=== PATIENT | male | born 1955 | race Caucasian/White ===

== ENCOUNTER 2017-01-24 10:38 | Inpatient (IN) | payer BC, OTHER ==
[2016-12-26 09:59] VITALS: BMI 31.0
--- NOTE | 2016-12-26 10:36 | PAT Medication Instructions ---
Service Date Dec 26, 2016. Current Home Medication List Aspirin (Aspirin Ec), 81 MG PO QAM Betamethasone Dip Aug 0.05% (Diprolene 0.05%), 1 DOSE TOP PRN Cholecalciferol (Vitamin D), Unknown Dose DAILY Citalopram Hydrobromide (Citalopram Hydrobromide), 1 TAB PO QAM Clonazepam (Klonopin), 1 MG PO HS Diclofenac (Voltaren), Unknown Dose PO BID Gabapentin (Neurontin), 2 TAB PO BID Gabapentin (Neurontin), 600 MG PO QAM Lisinopril (Zestril), 5 MG PO QAM Medication Instructions For Your Scheduled Surgery - Hold the following medications 2 weeks prior to surgery per surgeon instructions: Diclofenac (Voltaren), Unknown Dose PO BID - Hold the following medications 24 hours prior to surgery: Betamethasone Dip Aug 0.05% (Diprolene 0.05%), 1 DOSE TOP PRN - Hold the following medications the morning of surgery: Lisinopril (Zestril), 5 MG PO QAM Cholecalciferol (Vitamin D), Unknown Dose DAILY - Take the following medications the morning of surgery with a sip of water: Gabapentin (Neurontin) Citalopram Hydrobromide (Citalopram Hydrobromide), 1 TAB PO QAM Tylenol (if needed) Aspirin (Aspirin Ec), 81 MG PO QAM - Take the following medications as scheduled the night before surgery: Gabapentin (Neurontin) Clonazepam (Klonopin), 1 MG PO HS Tylenol (if needed) If you have any questions please call us at [phone] or [phone] ( Tish) or [phone]
--- NOTE | 2016-12-26 11:07 | DIAGNOSTIC IMAGING REPORT ---
CHEST 2 VIEWS ROUTINE CLINICAL HISTORY: Preoperative chest COMPARISON STUDY: A second 2016 FINDINGS: The cardiac images all contours remain stable. There is mild elevation/eventration of the right hemidiaphragm. There is a 1 cm opacity at the right lung base. This could represent a nipple shadow. This could be confirmed with a follow-up study with nipple markers. There is no failure. There is no focal pulmonary consolidation. There are no pleural effusions.[ IMPRESSION: 1. 1 cm opacity at the right lung base, possibly representing a nipple shadow 2. No evidence of failure. No evidence of focal pulmonary consolidation. Electronically signed by: Armando Pulido M.D. 12/26/2016 11:05 AM Dictated Date/Time: 12/26/2016 11:03 AM
[2016-12-26 11:23] LABS: BASO % 0.7 %; BASO ABS # 0.03 K/uL (0-0.2); COMPLETE YES; EOS % 3.3 %; HEMATOCRIT 38.6 % (42-52); IG% 0.4 %; LYMPH % 44.4 %; LYMPH ABS # 2.03 K/uL (1.2-3.4); MEAN CELL VOLUME 88.1 fL (80-100); MEAN CORPUSCULAR HEMOGLOBIN 29.7 pg (25-34); MEAN CORPUSCULAR HGB CONC 33.7 g/dl (32-36); MEAN PLATELET VOLUME 9.6 fL (7.4-10.4); MONO % 7.7 %; NEUT % 43.5 %; PLATELET COUNT 176 K/uL (130-400); RED BLOOD COUNT 4.38 M/uL (4.7-6.1); WHITE BLOOD COUNT 4.57 K/uL (4.8-10.8)
[2016-12-26 11:44] LABS: PARTIAL THROMBOPLASTIN RATIO 1.1
[2016-12-26 11:51] LABS: BLOOD UREA NITROGEN 17 mg/dl (7-18); BUN/CREATININE RATIO 24.5 (10-20); CALCIUM 9.3 mg/dl (8.5-10.1); CARBON DIOXIDE 32 mmol/L (21-32); CHLORIDE 107 mmol/L (98-107); CREATININE 0.71 mg/dl (0.60-1.40); GLUCOSE 96 mg/dl (70-99); POTASSIUM 4.4 mmol/L (3.5-5.1); SODIUM 141 mmol/L (136-145)
[2016-12-26 11:54] LABS: C-REACTIVE PROTEIN < 0.29 mg/dl (0-0.29)
--- NOTE | 2016-12-27 10:03 | DIAGNOSTIC IMAGING REPORT ---
TWO VIEW CHEST CLINICAL HISTORY: Follow-up abnormal chest x-ray. Repeat examination with nipple markers. FINDINGS: PA and lateral chest radiographs are compared to study dated 12/26/2016. The heart is enlarged. The pulmonary vasculature is noncongested. Mild elevation right hemidiaphragm and chronic interstitial thickening are similar to previous. No airspace consolidation or pleural effusion is identified. Bilateral nipple markers are in place. The nodular density seen yesterday is consistent with a nipple shadow. There is no pneumothorax. The skeletal structures are osteopenic. Degenerative change and scoliosis are noted in the thoracic spine. IMPRESSION: 1. Cardiomegaly with no active disease in the chest. 2. The nodular density at the right lung base seen yesterday corresponds to a nipple shadow. Electronically signed by: Martínez Pires M.D. 12/27/2016 10:01 AM Dictated Date/Time: 12/27/2016 9:59 AM
--- NOTE | 2017-01-21 11:23 | HISTORY & PHYSICAL EXAMINATION ---
DATE OF ADMISSION: 01/24/2017 CHIEF COMPLAINT: Right knee pain. HISTORY OF PRESENT ILLNESS: The patient is a 61-year-old gentleman from [place] who is now about 11 months out from a left knee replacement. He has done well from this. He has become more and more bothered by right knee pain and discomfort. He has been through extensive conservative treatment. The pain is mostly on the medial side of his knee. It is increased with weightbearing. He has difficulty with any prolonged weightbearing. He is very happy with his left knee and would like to have his right knee replaced. PAST MEDICAL HISTORY: Significant for 1. Unspecified neuropathy. 3. Sleep apnea. 4. Anxiety/depression. PAST SURGICAL HISTORY: 1. Herniorrhaphy. 2. Left knee arthroscopy. 3. Left knee replacement done 02/09/2016. ALLERGIES: None. CURRENT MEDICINES: 1. Gabapentin 1200 mg 3 times a day for neuropathy. 2. Citalopram once a day. 3. Clonazepam twice a day. 4. Lisinopril once a day. 5. Aspirin once a day. 6. Diclofenac twice a day. SOCIAL HISTORY: A 61-year-old male. 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 He works at [employer]. He is from [place]. He does not smoke. FAMILY HISTORY: Noncontributory. REVIEW OF SYSTEMS: Is significant for unspecified neuropathy. Denies any diabetes or chest pain or shortness of breath. No history of DVT or PE. PHYSICAL EXAMINATION: GENERAL: Reveals a healthy, pleasant, middle-aged male. He looks to be in good health. HEENT: Benign. NECK: Supple. No lymphadenopathy. LUNGS: Clear to auscultation. HEART: Has a regular rate and rhythm. ABDOMEN: Soft, nontender, nondistended. EXTREMITIES: Grossly neurovascularly intact except as follows: Examination of the right knee reveals the patient walks with a varus alignment to his knee. He is tender over the medial joint line. Small knee effusion. Range of motion 5-120. No instability. X-RAYS: X-rays of the right knee reviewed. It shows advanced right knee DJD. He has got complete loss of his medial joint space. He has got some tricompartmental changes. He has got posterior osteophytes. ASSESSMENT: A 61-year-old gentleman 11 months out from left knee replacement, doing well with advanced right knee degenerative joint disease. He has failed conservative treatment, would like to have his right knee replaced. PLAN: We are going to take him to the operating room and do a right total knee replacement. The risks and benefits of this procedure were explained to the patient including but not limited to DVT, PE, , infection, neurological injury, vascular injury, bleeding problem, pain, limited range of motion, stiffness, failure to relieve symptoms, incomplete relief of symptoms, need for further surgery in the future, fracture, leg length inequality, nerve palsy, etc. The patient understands and desires advised. Informed consent was obtained. We did talk to him about holding his lisinopril the morning of surgery, the diclofenac 2 weeks preop. He is planning to be discharged home using [facility]. His can assist in his care.
[2017-01-24] VITALS (8 sets, daily range): BP systolic 106–140; BP diastolic 59–80; PULSE 62–73; TEMP 36.3–36.5; O2SAT 96–99; Ht 180.3 cm; Wt 102.4 kg
[~2017-01-24] VITALS: Ht 180.3 cm; Wt 102.4 kg
[~2017-01-24 10:38] MED LIST: ACETAMINOPHEN 500 MG TAB PO SCH; ASPI81TA28 PO; AUG0.05O4 TOP; BUPIVACAINE 0.25% 30 ML VIAL ONE; BUPIVACAINE 0.5 % 5 MG/1 ML PF 10ML VIAL ONE; BUPIVACAINE LIPOSOME 266 MG, BUPIVACAINE/EPINEPHRINE INJ 50 ML, SODIUM CHLORIDE 0.9% PF... INFIL SCH; CEFAZOLIN 2000 MG/60 ML D5W 60 ML IV SCH; CHOL100010; CITA10TA4 PO; CLON1TAB3 PO; DICL50TA3 PO; FAMOTIDINE 20 MG TAB PO SCH; GABA600T PO; GABAPENTIN 300 MG CAP PO SCH; LACTATED RINGER'S 1000ML IV SCH; LACTATED RINGER'S 500 ML IV SCH; LISI-729 PO; METOCLOPRAMIDE HCL 10 MG TAB PO SCH; NRN/600 PO; SCOPOLAMINE 1.5 MG TDSY TD SCH; TRANEXAMIC ACID INJ 1,000 MG in SODIUM CHLORIDE 0.9% 100ML 100 ML IV SCH
--- NOTE | 2017-01-24 11:07 | History & Physical Bridge Note ---
H&P Re-Evaluation Bridge Note: I have examined the patient, reviewed the History & Physical and in the interval since the performance of the History & Physical I have noted the following changes of clinical significance: No changes noted
[2017-01-24] MEDS ORDERED: PROPOFOL IV EMULSION 10 MG/ML 20 ML VIAL IV ONE (11:12)
[2017-01-24] MEDS ORDERED: ONDANSETRON INJ 2 MG/ML 2 ML VIAL ONE (11:12)
[2017-01-24] MEDS ORDERED: MIDAZOLAM HCL 1 MG/ML 2ML VIAL ONE (11:12)
[2017-01-24] MEDS ORDERED: FENTANYL CITRATE INJ 50 MCG/1 ML 2 ML VIAL ONE (11:12)
[2017-01-24] MEDS ORDERED: ETOMIDATE 2 MG/ML 20 ML VIAL IV ONE (11:12)
[2017-01-24] MEDS ORDERED: BUPIVACAINE LIPOSOME 1/3% 266 MG/20 ML VIAL INFIL ONE (12:43)
[2017-01-24] MEDS ORDERED: BUPIVACAINE/EPINEPHRINE 0.25% 1:200,000 30 ML VIAL ONE (12:43)
[2017-01-24] MEDS ORDERED: SODIUM CHLORIDE 0.9% PF 50 ML VIAL ONE (12:43)
[2017-01-24] MEDS ORDERED: BACITRACIN 50000 UNIT VIAL ONE (12:43)
[2017-01-24] MEDS ORDERED: EpHEDrine SULFATE INJ 50 MG/ML AMP ONE (14:09)
[2017-01-24] MEDS ORDERED: WATER, STERILE FOR INJ 10 ML VIAL ONE (14:09)
[2017-01-24] MEDS ORDERED: ATROPINE SULFATE 0.1 MG/ML 5ML SYR IV PRN (14:30)
[2017-01-24] MEDS ORDERED: ONDANSETRON INJ 2 MG/ML 2 ML VIAL IV PRN ×2 (14:30→14:45)
[2017-01-24] MEDS ORDERED: FLUMAZENIL 0.1 MG/1 ML 10 ML VIAL IV PRN (14:30)
[2017-01-24] MEDS ORDERED: PROMETHAZINE HCL INJ 12.5 MG in SODIUM CHLORIDE 0.9% 50ML 50 ML IV PRN (14:30)
[2017-01-24] MEDS ORDERED: NALOXONE HCL 0.4 MG/1 ML VIAL/CARP IV PRN (14:30)
[2017-01-24] MEDS ORDERED: EpHEDrine SULFATE INJ 50 MG/ML AMP IV PRN (14:30)
--- NOTE | 2017-01-24 14:43 | [facility] Post Operative Brief Note ---
Immediate Operative Summary Operative Date January 24, 2017. Pre-Operative Diagnosis Right Knee Advanced Degenerative Joint Disease Post-Operative Diagnosis Right Knee Advanced Degenerative Joint Disease Procedure(s) Performed Right Total Knee Arthroplasty Surgeon Dr. Forrest Cd Manufacturing Supervisor Surgeon(s) TOMAS Joseph Estimated Blood Loss 50 ml Findings Right Knee DJD Fluids (cc crystalloids) 1300 cc Specimens A. Right Knee Bone and Tissue Drains None Anesthesia Spinal Complication(s) None Disposition Recovery Room / PACU
[2017-01-24] MEDS ORDERED: BISACODYL 10 MG SUPP PR PRN (14:45)
[2017-01-24] MEDS ORDERED: TAMSULOSIN HCL 0.4 MG CAP PO PRN (14:45)
[2017-01-24] MEDS ORDERED: BETAMETHASONE DIP AUG (DIPROLENE) 0.05% OINT 15 GM TUBE EXT PRN (14:45)
[2017-01-24] MEDS ORDERED: MAGNESIUM HYDROXIDE SUSP 30 ML UDC PO PRN (14:45)
[2017-01-24] MEDS ORDERED: SILVER SULFADIAZINE 1% CR 50 GM JAR EXT PRN (14:45)
[2017-01-24] MEDS ORDERED: METOCLOPRAMIDE HCL INJ 5 MG/ML 2 ML VIAL IV PRN (14:45)
[2017-01-24] MEDS ORDERED: ALUMINUM/MAGNESIUM/SIMETH (MAALOX MAX) 30 ML UDC PO PRN (14:45)
[2017-01-24] MEDS ORDERED: HYDROmorphone INJ 1 MG/ML SYR IV PRN (14:45)
[2017-01-24] MEDS ORDERED: ZOLPIDEM TARTRATE 5 MG TAB PO PRN (14:45)
--- NOTE | 2017-01-24 15:29 | DIAGNOSTIC IMAGING REPORT ---
RIGHT KNEE 1 OR 2 VIEWS ROUTINE CLINICAL HISTORY: AP/LATERAL IN PACU RIGHT KNEE Right COMPARISON: None. DISCUSSION: Total joint replacement. Good contact between prosthetic and underlying bone. Expected soft tissue postoperative change IMPRESSION: Anatomic alignment status post total right knee replacement Electronically signed by: Darryl Lawson M.D. 01/24/2017 3:28 PM Dictated Date/Time: 01/24/2017 3:28 PM
--- NOTE | 2017-01-24 16:17 | Anesthesiology Progress Note ---
Anesthesia Post Op Note Date & Time January 24, 2017 at 16:17 Vital Signs Pain Intensity: 0 Vital Signs Past 12 Hours Date Time Temp Pulse Resp B/P Pulse Ox O2 Delivery O2 Flow Rate FiO2 01/24/17 15:57 69 15 123/66 98 01/24/17 15:57 36.9 69 15 01/24/17 15:52 69 25 97 01/24/17 15:52 68 25 01/24/17 15:47 67 20 01/24/17 15:47 68 20 95 01/24/17 15:46 118/84 01/24/17 15:42 61 12 96 01/24/17 15:42 61 12 01/24/17 15:41 128/74 01/24/17 15:37 63 13 01/24/17 15:37 62 13 96 01/24/17 15:36 127/75 01/24/17 15:32 63 12 01/24/17 15:32 63 12 96 01/24/17 15:31 114/54 01/24/17 15:27 66 15 01/24/17 15:27 65 15 96 01/24/17 15:26 123/78 01/24/17 15:22 66 14 124/72 96 01/24/17 15:22 63 14 01/24/17 15:17 67 10 97 01/24/17 15:17 66 10 01/24/17 15:16 70 11 01/24/17 15:16 71 11 128/60 97 01/24/17 15:11 69 15 139/70 97 01/24/17 15:11 67 15 01/24/17 15:06 67 12 01/24/17 15:06 68 12 126/76 97 01/24/17 15:01 68 20 135/78 97 01/24/17 15:01 68 20 01/24/17 14:56 63 16 01/24/17 14:56 67 16 129/78 98 01/24/17 14:55 140/79 01/24/17 14:46 36.2 65 16 141/70 100 Nasal Cannula 3 01/24/17 11:17 97 Room Air 01/24/17 11:11 36.3 67 14 140/73 Notes Mental Status: alert / awake / arousable, participated in evaluation Pt Amnestic to Procedure: Yes Nausea / Vomiting: adequately controlled Pain: adequately controlled Airway Patency, RR, SpO2: stable & adequate BP & HR: stable & adequate Hydration State: stable & adequate Neuraxial Anesthesia: was administered, sensory block is resolving Anesthetic Complications: no major complications apparent
[2017-01-24] MEDS: CHECK SCOPOLAMINE PATCH PLACEMENT SCH ×2 (16:55→23:49)
[2017-01-24] MEDS: D5W AND 1/2NSS + 20MEQ KCL 1,000 ML IV SCH ×2 (17:58→23:48)
[2017-01-24] MEDS: KETOROLAC TROMETHAMINE 30 MG/ML VIAL IV. SCH ×2 (17:59→23:48)
[2017-01-24] MEDS: FERROUS GLUCONATE 324 MG TAB PO SCH (17:59)
[2017-01-24] MEDS: DOCUSATE SODIUM 100 MG CAP PO SCH (20:27)
[2017-01-24] MEDS: SENNA 8.6 MG TAB PO SCH (20:27)
[2017-01-24] MEDS: CLONAZEPAM 1 MG TAB PO SCH (20:28)
[2017-01-24] MEDS: TAPENTADOL ER 50 MG TABCR PO SCH (20:28)
[2017-01-24] MEDS: ASPIRIN 325 MG ECTAB PO SCH (20:28)
[2017-01-24] MEDS: GABAPENTIN 600 MG TAB PO SCH (20:40)
[2017-01-24] MEDS ORDERED: TRANEXAMIC ACID INJ 1,000 MG in SODIUM CHLORIDE 0.9% 100ML 100 ML IV SCH (21:00)
[2017-01-24] MEDS: CEFAZOLIN IV 2,000 MG in DEXTROSE 5% 50ML 50 ML IV SCH (22:25)
[2017-01-24] MEDS: ACETAMINOPHEN 500 MG TAB PO SCH (22:25)
[2017-01-25] VITALS (7 sets, daily range): BP systolic 100–124; BP diastolic 60–76; PULSE 60–67; TEMP 36.5–37.1; O2SAT 93–97
[2017-01-25 05:10] LABS: HEMATOCRIT 35.1 % (42-52); MEAN CELL VOLUME 87.1 fL (80-100); MEAN CORPUSCULAR HEMOGLOBIN 28.5 pg (25-34); MEAN CORPUSCULAR HGB CONC 32.8 g/dl (32-36); MEAN PLATELET VOLUME 9.3 fL (7.4-10.4); PLATELET COUNT 189 K/uL (130-400); RED BLOOD COUNT 4.03 M/uL (4.7-6.1); WHITE BLOOD COUNT 8.68 K/uL (4.8-10.8)
--- NOTE | 2017-01-25 05:28 | OPERATIVE REPORT ---
DATE OF OPERATION: 01/24/2017 SURGEON: Otis Forrest MD LABORER [employer]: TOMAS English PREOPERATIVE DIAGNOSIS: Right knee degenerative joint disease. POSTOPERATIVE DIAGNOSIS: Same. PROCEDURE PERFORMED: Left cemented posterior stabilized total knee arthroplasty. COMPLICATIONS: None. ESTIMATED BLOOD LOSS: 50 mL. FLUID REPLACEMENT: 1300 mL crystalloid fluid replacement. TOURNIQUET TIME: 57 minutes at 300 mmHg. ANESTHESIA: Spinal with adductor canal block. DRAINS: None. SPECIMENS: Left knee sent for pathology. OPERATIVE INDICATIONS: The patient is a 61-year-old gentleman who is about 11 months out from a left knee replacement. He has a long history of bilateral knee pain and discomfort. He has left knee replaced just about 11 months ago, has done well from this. He has continued to be bothered by right knee pain. He has failed conservative care. X-rays revealed advanced DJD and he elected to proceed with operative treatment. OPERATIVE FINDINGS: Operative findings revealed advanced right knee DJD. He had extensive grade 4 changes and eburnation of the medial femoral condyle and medial tibial plateau. He had less severe and more spotty grade 4 changes of the lateral compartment and more extensive grade 4 changes of the patellofemoral joint. Moderate size joint effusion. OPERATIVE IMPLANTS: Operative implants consisted of: 1. A Biomet Vanguard size 70 right posterior stabilized femoral component. 2. A Biomet size 71 tibial tray. 3. A 12 mm posterior stabilized polyethylene insert. 4. A 34 x 8.5 all poly patella. OPERATIVE PROCEDURE: The patient taken to the operating room, identified and placed on the operating table in supine position. All contact areas were appropriately padded. IV antibiotics were provided by anesthesia team. A Mahoney catheter was placed in sterile fashion. Right thigh tourniquet was then placed. The right leg was then prepped and draped in the usual sterile fashion. The right leg was elevated and exsanguinated with Esmarch and tourniquet was placed at 300 mmHg. An anterior approach to the right knee was then performed through a longitudinal incision centered over the patella. Sharp dissection was carried out through the subcutaneous tissues down to the level of the extensor mechanism. Medial parapatellar arthrotomy incision was made. Some subperiosteal dissection was carried out medially. The fat pad was resected from beneath the patellar tendon. The lateral patellofemoral ligament was released. The patella was everted and knee was flexed. The osteophytes were taken off the distal femur. The ACL and PCL were then released from the distal femur and the tibia subluxated anteriorly. The external tibial alignment jig was then placed in the anterior face of the tibia and adjusted 16 mm medially. A proximal tibial cut was made to remove about 2-3 mm of bone from the most deficient aspect of the medial tibial plateau. The tibia was then sized to a size 71. Attention was then drawn to the femur. The distal femur was entered with a sharp drill bit. Intramedullary canal was suctioned. A right 6 degree valgus cutting guide was placed. Distal femoral cutting block was pinned in place. Distal femoral cut was made to take an additional 3 mm of bone off the distal femur. The femur was then sized to a size 70. We did downsize this just slightly. The AP cutting block was pinned parallel to the epicondylar axis, which was 3 degrees of external rotation. The anterior cut, anterior chamfer, posterior cut, posterior chamfer cuts were made. Box cutting guide was placed and adjusted slightly lateral and the box cut was made. The knee was flexed. The remnants of the medial and lateral meniscus were excised. The osteophytes were taken off the posterior aspect of the femur. A trial femoral component was placed. The tibial tray was pinned in maximum external rotation and drill and stem punch were used to create defect in proximal tibia for the tibial tray. The knee was then trialed and the 12 mm insert fit most appropriately. Attention was then drawn to the patella. The patella was cleaned of all soft tissues. Patellar thickness measured 25 mm in thickness and was cut down to 15. It was sized to a size 34 patella. Lug holes were drilled for a 34 patella. The lateral osteophyte was removed. Patella button was placed. He was taken through range of motion and patella tracked nicely with no thumbs test. Attention was then drawn toward placement of permanent components. All trial components were removed. A bone plug was placed in the distal femur to limit blood loss. A double batch of Palacos G cement was mixed. A right size 70 posterior stabilized femoral component, a size 71 tibial tray, a 12 mm posterior stabilized polyethylene insert, and a 34 x 8.5 all poly patella were then cemented in place. Knee was brought out into full extension until cement hardened. A final cement check was then performed. The pericapsular tissues were injected with 100 mL of a combination of 20 mL of Exparel, 30 mL of normal saline, 50 mL of 0.25% Marcaine with epinephrine. The tourniquet was then let down for a total tourniquet time of 57 minutes. Hemostasis was assured with use of electrocautery. The extensor mechanism was then closed with a combination of #1 PDS suture and #1 Vicryl suture in a [id number] fashion. Extensor mechanism was checked and found to be intact. Subcutaneous tissues were then closed with 2-0 Dexon suture in a buried interrupted fashion. Skin was closed skin nikhil. Leg was then cleaned and dried and a sterile dressing with Xeroform, 4 x 4, sterile cast padding and Harvinder bandage were applied. The patient then transferred to the recovery room in stable condition. The patient tolerated the procedure well with no complications. All needle and sponge counts were correct at the end of the operation. I attest to the content of the Intraoperative Record and any orders documented therein. Any exceptio ns are noted below.
[2017-01-25 05:29] LABS: BUN/CREATININE RATIO 18.1 (10-20); CREATININE 0.91 mg/dl (0.60-1.40); POTASSIUM 4.1 mmol/L (3.5-5.1)
[2017-01-25] MEDS: D5W AND 1/2NSS + 20MEQ KCL 1,000 ML IV SCH ×2 (05:46→12:21)
[2017-01-25] MEDS: KETOROLAC TROMETHAMINE 30 MG/ML VIAL IV. SCH ×4 (05:46→23:56)
[2017-01-25] MEDS: CEFAZOLIN IV 2,000 MG in DEXTROSE 5% 50ML 50 ML IV SCH (05:46)
[2017-01-25] MEDS: ACETAMINOPHEN 500 MG TAB PO SCH ×3 (05:47→21:30)
[2017-01-25] MEDS: CHECK SCOPOLAMINE PATCH PLACEMENT SCH ×2 (07:25→16:03)
[2017-01-25] MEDS: GABAPENTIN 600 MG TAB PO SCH ×3 (07:27→21:29)
--- NOTE | 2017-01-25 07:44 | Anesthesiology Progress Note ---
Anesthesia Post Op Note Date & Time January 25, 2017 at 07:44 Vital Signs Pain Intensity: 7.0 Vital Signs Past 12 Hours Date Time Temp Pulse Resp B/P Pulse Ox O2 Delivery O2 Flow Rate FiO2 01/25/17 03:15 36.5 61 18 115/65 93 Room Air 01/24/17 23:45 Room Air 01/24/17 22:59 36.5 70 18 126/71 96 Room Air Notes Mental Status: alert / awake / arousable, participated in evaluation Pt Amnestic to Procedure: Yes Nausea / Vomiting: adequately controlled Pain: adequately controlled Airway Patency, RR, SpO2: stable & adequate BP & HR: stable & adequate Hydration State: stable & adequate Anesthetic Complications: no major complications apparent
[2017-01-25] MEDS: DOCUSATE SODIUM 100 MG CAP PO SCH ×2 (08:30→20:34)
[2017-01-25] MEDS: OXYCODONE HCL IR 5 MG TAB (IMMEDIATE RELEASE) PO PRN ×2 (08:30→12:20)
[2017-01-25] MEDS: CITALOPRAM 20 MG TAB PO SCH (08:31)
[2017-01-25] MEDS: LISINOPRIL 5 MG TAB PO SCH (08:31)
[2017-01-25] MEDS: FERROUS GLUCONATE 324 MG TAB PO SCH ×3 (08:31→17:50)
[2017-01-25] MEDS: MULTIVITAMIN TAB PO SCH (08:32)
[2017-01-25] MEDS: PANTOprazole SOD 40 MG TAB PO SCH (08:32)
[2017-01-25] MEDS: ASPIRIN 325 MG ECTAB PO SCH ×2 (08:32→20:34)
[2017-01-25] MEDS: TAPENTADOL ER 50 MG TABCR PO SCH ×2 (08:34→20:34)
--- NOTE | 2017-01-25 18:54 | PROGRESS NOTE ---
DATE: 01/25/2017 SUBJECTIVE: A 61-year-old gentleman postop day 1 from right knee replaced. He has done reasonably well. Painful but managed. No chest pain or shortness of breath. Not feeling dizzy or lightheaded. OBJECTIVE: VITAL SIGNS: Temperature 36.7. Vital signs stable. PHYSICAL EXAMINATION: GENERAL: Reveals a healthy, pleasant, middle-aged male. He was sitting up at his bedside on my visit in this afternoon. LUNGS: Clear to auscultation. HEART: Has a regular rate and rhythm. ABDOMEN: Soft, nontender, nondistended. EXTREMITIES: Grossly neurovascularly intact except as follows: Examination of the right leg reveals the dressing to be clean, dry, and intact. He can do a straight leg raise. He can dorsiflex and plantarflex his foot appropriately. He is neurologically intact. LABORATORY DATA: Hemoglobin 11.5. Hematocrit 35.1. Electrolytes are stable. ASSESSMENT: A 61-year-old gentleman postop day 1 from a right total knee replacement, doing pretty well. Pain is controlled. He is neurologically intact. PLAN: 1. DVT prophylaxis including thigh-high TEDs, SCDs, and aspirin twice a day. 2. PT/OT. Weightbearing as tolerated. Right total knee protocol. 3. Pain control, doing pretty well with current pain regimen. 4. Disposition: Plan to discharge to home with some home health once adequately recovered.
[2017-01-25] MEDS: CLONAZEPAM 1 MG TAB PO SCH (20:33)
[2017-01-25] MEDS: SENNA 8.6 MG TAB PO SCH (20:34)
[2017-01-25] MEDS ORDERED: OXYC-57 PO (21:13)
[2017-01-25] MEDS ORDERED: ASPEC325 PO (21:13)
--- NOTE | 2017-01-25 21:16 | Discharge Instructions ---
Discharge Instructions Date of Service January 25, 2017. Admission Reason for Admission: Right Knee Degenerative Joint Disease;Abnormal Discharge Discharge Diagnosis / Problem: Right Knee Replacement Discharge Goals Goal(s): Decrease discomfort, Improve function, Increase independence, Improve disease control, Therapeutic intervention Activity Recommendations Activity Limitations: per Instructions/Follow-up section Weightbearing Status: Right weightbearing . Instructions / Follow-Up Instructions / Follow-Up ACTIVITY RECOMMENDATIONS: Physical Therapy: * You will go to physical therapy three times each week for four to six weeks after your surgery in order to regain your knee range of motion and to retrain your knee to work properly. * It is just as important to make sure you are getting your knee perfectly straight as it is to regain your knee bend. * Taking a pain pill an hour before therapy can help you have a more productive and comfortable therapy session. Home Exercise: * You were shown a series of exercises (heel props, heel slides, etc.) in the hospital. Do these exercises three to four times each day including the exercises you were shown in physical therapy. Walking: * Get up and walk several times each day. For the first four weeks, try not to stand or walk for more than one hour at a time. If you do stand or walk for more than one hour, you will not hurt anything, but your knee and leg will likely swell. * As you feel comfortable, you may change from the walker or crutches to a cane and then to independent walking. MEDICATIONS: New Medicine: * You will likely be taking one or more of these medications: 1. Percocet - A quick and shorter-acting pain medication. Take one to two tablets every four to six hours to lessen your pain. 2. Aspirin - Thins your blood to lessen the chance of forming a blood clot. * The most common side effects of pain medicine and iron are nausea and constipation. If nausea or constipation is too much of a problem or if you have any questions about your new medicines or doses, call [facility] at . We will try to help you manage these issues. VERY IMPORTANT TO READ AND REVIEW" Pain: * The immediate post-operative period after knee replacement surgery is often quite painful. * You are given a prescription for pain medicine. You should take it, as directed, when you need it, especially before physical therapy and before going to bed. Pain that interferes with sleep is very common and can last several months. * You will likely need pain medicine for the first four to six weeks. It will not stop all of the pain. The pain will lessen and as you feel better, you may change to milder pain medicine such as Tylenol. * The most common side effects of pain medicine are nausea and constipation, so don't take more than you need. SPECIAL CARE INSTRUCTIONS: TEDs/Elastic Stockings: * The white elastic stockings help limit swelling and prevent blood clots from forming in your legs. The more you wear them, the more they work. * Wear them for six weeks after knee replacement surgery and four weeks after partial knee replacement. Prevention of Infection: * Take antibiotics one hour before any dental cleaning, dental work, urological procedure, gastrointestinal procedure or any invasive surgery in order to prevent your new joint from getting infected. * You may get the antibiotics from the doctor performing the procedure or you may call our office at before and we will call in a prescription to the pharmacy of your choice. Things to Watch For: * Drainage from the incision site that occurs more than one week after your surgery. * Severely increased knee/leg pain or swelling. * Increased redness at the incision site. * Fever above 102 degrees Fahrenheit. * Unusual chest pain or shortness of breath. * Unusual pain or burning with urination. Call [facility] at with any of the above problems or if you have any questions about your medicines or recovery. FOLLOW UP VISIT: Make an appointment to see your doctor for approximately two weeks after surgery for a progress check and staple removal by calling the office at . Current Hospital Diet Patient's current hospital diet: Regular Diet Discharge Diet Recommended Diet: Regular Diet Procedures Procedures Performed: Right Total Knee Arthroplasty Pending Studies Studies pending at discharge: no Medical Emergencies . Who to Call and When: Medical Emergencies: If at any time you feel your situation is an emergency, please call [phone] immediately. . Non-Emergent Contact Non-Emergency issues call your: Surgeon . "Provider Documentation" section prepared by Otis Forrest. . VTE Core Measure Inpt VTE Proph given/why not?: Other Anticoagulation, T.E.D. Stockings, SCD's
[2017-01-26] MEDS: CHECK SCOPOLAMINE PATCH PLACEMENT SCH (00:02)
[2017-01-26] MEDS: KETOROLAC TROMETHAMINE 30 MG/ML VIAL IV. SCH (05:53)
[2017-01-26] MEDS: ACETAMINOPHEN 500 MG TAB PO SCH (05:54)
[2017-01-26 06:16] VITALS: BP 125/74; PULSE 60; TEMP 36.9; O2SAT 95
--- NOTE | 2017-01-26 07:26 | PROGRESS NOTE ---
DATE: 01/26/2017 SUBJECTIVE: A 61-year-old gentleman postop day 2 from a right knee replacement. He is doing pretty well. Moderate amount of pain. No chest pain or shortness of breath. Not feeling dizzy or lightheaded. OBJECTIVE: VITAL SIGNS: Temperature 36.9. Vital signs stable. PHYSICAL EXAMINATION: GENERAL: Reveals a healthy, pleasant, middle-aged male. He is sitting up in his bedside chair and looks pretty comfortable. LUNGS: Clear to auscultation. HEART: Regular rate and rhythm. ABDOMEN: Soft, nontender, nondistended. EXTREMITIES: Grossly neurovascularly intact except as follows: Examination of the right leg reveals the leg to be well aligned. Dressing is clean, dry and intact. No drainage. Calf is soft and relatively supple. He is neurologically intact. ASSESSMENT: A 61-year-old gentleman postop day 2 from a right total knee replacement, doing pretty well. Pain is reasonably well controlled. PLAN: 1. DVT prophylaxis including thigh-high TEDs, SCDs, and aspirin twice a day. 2. PT/OT. Weightbearing as tolerated. Right total knee protocol. 3. Pain control, doing pretty well with current pain regimen. 4. Disposition: Plan to discharge to home with home health later today.
[2017-01-26] MEDS: MULTIVITAMIN TAB PO SCH (07:28)
[2017-01-26] MEDS: TAPENTADOL ER 50 MG TABCR PO SCH (07:28)
[2017-01-26] MEDS: GABAPENTIN 600 MG TAB PO SCH (07:29)
[2017-01-26] MEDS: PANTOprazole SOD 40 MG TAB PO SCH (07:29)
[2017-01-26] MEDS: FERROUS GLUCONATE 324 MG TAB PO SCH (07:30)
[2017-01-26] MEDS: LISINOPRIL 5 MG TAB PO SCH (07:30)
[2017-01-26] MEDS: ASPIRIN 325 MG ECTAB PO SCH (07:30)
[2017-01-26] MEDS: DOCUSATE SODIUM 100 MG CAP PO SCH (07:31)
[2017-01-26] MEDS: CITALOPRAM 20 MG TAB PO SCH (07:31)
[2017-01-26 07:36] VITALS: BP 128/74; PULSE 67; TEMP 37.4; O2SAT 93
[2017-01-26] MEDS: OXYCODONE HCL IR 5 MG TAB (IMMEDIATE RELEASE) PO PRN (07:39)
[2017-01-26 08:22] VITALS: O2SAT 93
[2017-01-26 10:14] VITALS: BP 128/74; PULSE 67; TEMP 37.4; O2SAT 93
--- NOTE | 2017-01-28 15:08 | EDITING REQUIRED CODING QUERY ---
CODING QUERY To promote full compliance with coding requirements relating to patient care, provider participation is requested in all cases of soccer ball assembler uncertainty. Please assist us with the question(s) below: Coding Question(s): Dr. Forrest, Throughout the record, OA of the right knee is documented; however, on the operative report, left total knee arthroplasty is documented. Please clarify the laterality of the condition/procedure. ( ) Left knee ( x ) Right knee Physician's Response(s): I Replaced his left knee 9+ months ago. Most recent admission was for Right TKR. Thank you for your time, JACOB Crespo, ACID DUMPER
--- NOTE | 2017-02-01 08:30 | DISCHARGE SUMMARY ---
NOTICE TO RECEIVING DEMOCRAT/AGENCY This information is strictly Confidential and protected under [place] law. [place] law prohibits you from making any further disclosure of this information unless further disclosure is expressly permitted by the written consent of the person to whom it pertains or is authorized by law. A general authorization for the release of medical or other information is not sufficient for this purpose. Hospital accepts no responsibility if the information is made available to any other person, INCLUDING THE PATIENT. ADMITTING PHYSICIAN AND SURGEON: Dr. Forrest. ADMITTING DIAGNOSIS: Right knee degenerative joint disease. SURGERY PERFORMED: Right total knee arthroplasty. SECONDARY DIAGNOSES: Include neuropathy, sleep apnea, anxiety, depression. CONSULTS: None obtained. HISTORY AND PHYSICAL EXAMINATION: Well documented in patient's chart. HOSPITAL COURSE: The patient was admitted on 01/24/2017 and underwent total knee arthroplasty. He tolerated the procedure well. There were no complications. He was transferred to the PACU postoperatively and later to the orthopedic floor for further care. He was given Ancef for antibiotic prophylaxis, VALDEZ stockings, SCDs and aspirin for DVT prophylaxis. Hemoglobin, hematocrit and vital signs were monitored during his hospital stay and remained stable. He did not require any blood transfusions. There were no complications. By postoperative day 2, he was tolerating a general diet, pain was controlled with oral pain medicine. He was participating in physical therapy and had no signs or symptoms of deep vein thrombosis. On postop day 2, he was discharged home and set up with home health services. He was given printed discharge instructions, including new prescriptions for aspirin 325 mg b.i.d., Percocet. Continue his home medications with the exception of his home dose of aspirin which was changed. Continue physical therapy, weightbearing as tolerated, VALDEZ stockings. Follow up in 10-12 days or sooner if there are any problems or concerns.
== END 2017-01-26 11:04 | disposition home health service (06) | DRG 470 ==
LOC: ENRESERVTM → ENRESERVDT → C.ACU 10:38 → C.3E 11:00
PROVIDERS: ADMIT Orthopaedic Surgery Sports Medicine; ATTEND Orthopaedic Surgery Sports Medicine
PROC: 0SRC0J9 Replacement of Right Knee Joint with Synthetic Substitute, Cemented, Open Approach (ICD-10-PCS; principal; 2017-01-24 12:30)
DX: M17.11 Unilateral primary osteoarthritis, right knee (principal); M25.461 Effusion, right knee; I10 Essential (primary) hypertension; G62.9 Polyneuropathy, unspecified; G47.30 Sleep apnea, unspecified; F41.9 Anxiety disorder, unspecified; F32.9 Major depressive disorder, single episode, unspecified; E66.9 Obesity, unspecified; Z68.31 Body mass index [BMI] 31.0-31.9, adult; Z86.73 Personal history of transient ischemic attack (TIA), and cerebral infarction without residual deficits; Z96.652 Presence of left artificial knee joint; Z79.1 Long term (current) use of non-steroidal anti-inflammatories (NSAID); Z79.82 Long term (current) use of aspirin; Z79.899 Other long term (current) drug therapy